=== PATIENT | female | born 1940 | race Caucasian/White ===

== ENCOUNTER → 2016-07-26 | Day surgery (SDC) | payer MEDICARE ==
[~2016-07-26] MED LIST: ACETAMINOPHEN 1000 MG/100 ML VIAL IV ONE; B-COTAB41 PO; BUPIVACAINE/EPINEPHRINE 0.25% PF 30 ML VIAL ONE; FLUO-1 PO; LACTATED RINGER'S 1000 ML INJ 1,000 ML ONE; LEVO.1 PO; LIDOCAINE 1%/EPINEPHrine 1:100,000 SOLN 20 ML VIAL ONE; LORA-392 PO; LOVA10TA PO; MIDAZOLAM HCL 2 MG/2 ML VIAL ONE; MULT1TAB PO; OMEG600C2 PO; OMEP20TA39 PO; ONDANSETRON HCL 4 MG/2 ML VIAL IV PUSH ONE; PROPOFOL 100 MG/10 ML INJ IV ONE; VANCOMYCIN HCL 1000 MG VIAL ONE; VITA100017 PO; VITA10002 PO; VITA200017 PO; ceFAZolin INJ 1,000 MG VIAL ONE
--- NOTE | 2016-07-28 13:15 | MP ---
cc: DIOMEDES HUMPHRIES M.D., MICHAEL A. M.D. CHEW, BOON Y. M.D. DATE OF SURGERY: 07/26/2016 PROCEDURE Excision right chest wall mass. PREOPERATIVE DIAGNOSIS Chest wall mass with previous history of invasive carcinoma of the right breast. POSTOPERATIVE DIAGNOSIS Chest wall mass with previous history of invasive carcinoma of the right breast. ANESTHESIA MAC SURGEON Ralph Fox MD ESTIMATED BLOOD LOSS Less than 10 mls. FLUIDS: 550 mls crystalloid COMPLICATIONS None. DRAINS: None. SPECIMEN Right chest wall, tissue to pathology, the lesion size is 2 x 4 cm's. PROCEDURE IN DETAIL The patient was seen in the holding area and the area in question marked by the undersigned and confirmed by the patient. She was taken to the operating room and placed on the operating room table in the supine position. After an adequate level of IV sedation was begun the right chest wall was prepped and draped. Time-out was taken confirming correct patient site procedure to be performed. Skin and subcutaneous tissue was infiltrated with local anesthetic and an incision made through the previous old incision. Dissection was carried out inferior to the incision where the mass was located on the lateral chest wall. This was excised sharply, oriented with silk sutures and passed off the table. The wound was reinspected and made hemostatic with electrocautery. The wound was closed in two layers with interrupted 3-0 Vicryl suture and 5-0 PDS in a running subcuticular fashion. The wound was dressed with Steri-Strips. The patient was taken back to the recovery room in stable condition. Sponge, needle and instrument counts were reported be correct. The patient tolerated procedure well. MD TOMASZ Rodriguez/jennifer /8:57 AM /1:05 PM
== END | disposition home or self-care (01) ==
LOC: ESDC 06:31
PROVIDERS: ATTEND Surgery Trauma Surgery
DX: R22.2 Localized swelling, mass and lump, trunk (principal); Z85.3 Personal history of malignant neoplasm of breast
CPT/HCPCS: 00400; 21552; 88305; J0131; J0690; J2250; J2405; J3010; J3370; J7120

== ENCOUNTER → 2017-02-26 | Outpatient (CLI) | payer MEDICARE ==
[~2017-02-26] MED LIST changes: -ACETAMINOPHEN 1000 MG/100 ML VIAL IV ONE; -BUPIVACAINE/EPINEPHRINE 0.25% PF 30 ML VIAL ONE; -LACTATED RINGER'S 1000 ML INJ 1,000 ML ONE; -LIDOCAINE 1%/EPINEPHrine 1:100,000 SOLN 20 ML VIAL ONE; -MIDAZOLAM HCL 2 MG/2 ML VIAL ONE; -ONDANSETRON HCL 4 MG/2 ML VIAL IV PUSH ONE; -PROPOFOL 100 MG/10 ML INJ IV ONE; -VANCOMYCIN HCL 1000 MG VIAL ONE; -ceFAZolin INJ 1,000 MG VIAL ONE
[2017-02-26 09:52] LABS: HEMATOCRIT 42.1 % (35.0-46.0); MEAN CELL VOLUME 91.8 FL (80.0-100.0); MEAN CORPUSCULAR HEMOGLOBIN 31.6 PG (27.0-34.0); MEAN CORPUSCULAR HGB CONC 34.4 % (32.0-36.0); PLATELET COUNT 191 TH/MM3 (150-450); RED BLOOD COUNT 4.59 MIL/MM3 (4.00-5.30); RED CELL DISTRIBUTION WIDTH 12.6 % (11.6-17.2); REVIEW FLAG FINAL; WHITE BLOOD COUNT 5.5 TH/MM3 (4.0-11.0)
[2017-02-26 10:16] LABS: ANION GAP 3 MEQ/L (5-15); AST (GOT) 21 U/L (15-37); BICARBONATE 31.1 MEQ/L (21.0-32.0); BLOOD UREA NITROGEN 24 MG/DL (7-18); CHLORIDE 105 MEQ/L (98-107); GLOMERULAR FILTRATION RATE 57 ML/MIN (>89); GLUCOSE,FASTING 89 MG/DL (74-99); POTASSIUM 3.8 MEQ/L (3.5-5.1); SODIUM (NA) 139 MEQ/L (136-145)
[2017-02-26 10:26] LABS: ALKALINE PHOSPHATASE 78 U/L (45-117); ALT (GPT) 27 U/L (10-53); HDL CHOLESTEROL 70.4 MG/DL (40.0-60.0); LDL CHOLESTEROL 129 MG/DL (0-99); LDL CHOLESTEROL DIRECT 129 MG/DL (0-99); TOTAL BILIRUBIN ADULT 0.4 MG/DL (0.2-1.0)
== END ==
LOC: PLAB 07:31
PROVIDERS: ATTEND Family Medicine
DX: E78.5 Hyperlipidemia, unspecified (principal); I10 Essential (primary) hypertension; E03.8 Other specified hypothyroidism
CPT/HCPCS: 36415; 80053; 80061; 83721; 84439; 84443; 85027

== ENCOUNTER → 2017-05-08 | Outpatient (CLI) | payer MEDICARE ==
[2017-05-08 17:34] LABS: FREE T4 1.01 NG/DL (0.76-1.46)
== END ==
LOC: PLAB 14:04
PROVIDERS: ATTEND Family Medicine
DX: E03.8 Other specified hypothyroidism (principal)
CPT/HCPCS: 84439; 84443

== ENCOUNTER → 2017-08-21 | Outpatient (CLI) | payer MEDICARE ==
[2017-08-21 12:10] LABS: HEMATOCRIT 42.8 % (35.0-46.0); HEMOGLOBIN 14.3 GM/DL (11.6-15.3); MEAN CELL VOLUME 92.5 FL (80.0-100.0); MEAN CORPUSCULAR HEMOGLOBIN 30.9 PG (27.0-34.0); MEAN CORPUSCULAR HGB CONC 33.4 % (32.0-36.0); MEAN PLATELET VOLUME 10.5 FL (7.0-11.0); PLATELET COUNT 209 TH/MM3 (150-450); RED BLOOD COUNT 4.62 MIL/MM3 (4.00-5.30); RED CELL DISTRIBUTION WIDTH 12.2 % (11.6-17.2); WHITE BLOOD COUNT 5.2 TH/MM3 (4.0-11.0)
[2017-08-21 12:30] LABS: ALBUMIN 3.6 GM/DL (3.4-5.0); AST (GOT) 22 U/L (15-37); BLOOD UREA NITROGEN 31 MG/DL (7-18); CALCIUM 9.4 MG/DL (8.5-10.1); CHLORIDE 106 MEQ/L (98-107); CREATININE 0.97 MG/DL (0.50-1.00); GLOMERULAR FILTRATION RATE 56 ML/MIN (>89); GLUCOSE,FASTING 92 MG/DL (74-99); SODIUM (NA) 142 MEQ/L (136-145)
[2017-08-21 12:31] LABS: CHOLESTEROL 210 MG/DL (120-200); TRIGLYCERIDES 109 MG/DL (42-150)
[2017-08-21 12:41] LABS: ALKALINE PHOSPHATASE 75 U/L (45-117); ALT (GPT) 28 U/L (10-53); FREE T4 0.94 NG/DL (0.76-1.46); HDL CHOLESTEROL 58.2 MG/DL (40.0-60.0); LDL CHOLESTEROL 130 MG/DL (0-99); LDL CHOLESTEROL DIRECT 130 MG/DL (0-99); TOTAL BILIRUBIN ADULT 0.4 MG/DL (0.2-1.0)
[2017-08-21 17:59] LABS: HEMOGLOBIN A1C 5.4 % (4.3-6.0)
== END ==
LOC: PLAB 07:21
PROVIDERS: ATTEND Family Medicine
DX: E78.4 Other hyperlipidemia (principal); E03.8 Other specified hypothyroidism; R73.01 Impaired fasting glucose
CPT/HCPCS: 36415; 80053; 80061; 83036; 83721; 84439; 84443; 85027